=== PATIENT | female | born 2000 | race Caucasian/White ===

== ENCOUNTER 2023-10-18 09:39 | Emergency (ER) | payer SELFPAY ==
[~2023-10-18] VITALS: Ht 167.6 cm; Wt 77.0 kg
[2023-10-18 09:58] VITALS: BP 117/75; PULSE 87; RESP 16; O2SAT 100
[2023-10-18] MEDS: ACETAMINOPHEN 325MG TABLET PO STA (10:16)
[2023-10-18] MEDS: ONDANSETRON HCL 4MG/2ML INJ IM STA (10:16)
[2023-10-18 10:33] LABS: BASOPHILS % 0.4 % (0.0-2.0); EOSINOPHILS % 0.5 % (0.0-5.0); HEMATOCRIT. 38.8 % (36.0-48.0); LYMPHOCYTES % 19.7 % (20.0-50.0); MEAN CORPUSCULAR HEMOGLOBIN 29.9 pg (28.0-32.0); MEAN CORPUSCULAR HGB CONC 33.6 g/dL (31.0-37.0); MEAN CORPUSCULAR VOLUME 88.9 fL (81.0-99.0); MEAN PLATELET VOLUME 8.1 fl (7.4-10.4); MONOCYTES % 6.7 % (2.0-8.0); NEUTROPHILS % 72.7 % (40.0-76.0); PLATELET 219 x1000/uL (130-400); RED BLOOD CELL COUNT 4.36 mill/uL (4.2-5.4); RED CELL DISTRIBUTION WIDTH 13.6 % (11.6-14.6); WHITE BLOOD COUNT 5.7 x1000/uL (4.5-11.0)
[2023-10-18 10:47] LABS: CHLORIDE 106 mEq/L (98-107); POTASSIUM 3.9 mEq/L (3.5-5.1); SODIUM 140 mEq/L (136-145)
[2023-10-18 10:48] LABS: CALCIUM 9.4 mg/dL (8.7-10.4); CARBON DIOXIDE 26 mEq/L (21-32)
[2023-10-18 10:53] LABS: CREATININE 0.7 mg/dL (0.6-1.0); GLUCOSE 102 mg/dL (70-105); UREA NITROGEN BLOOD 13 mg/dL (9-23)
[2023-10-18 11:05] LABS: CLARITY URINE CLEAR (CLEAR); COLOR URINE YELLOW (YELLOW); GLUCOSE URINE NEGATIVE (NEGATIVE); KETONES URINE NEGATIVE (NEGATIVE); LEUKOCYTE ESTERASE URINE NEGATIVE (NEGATIVE); NITRITE URINE NEGATIVE (NEGATIVE); OCCULT BLOOD URINE NEGATIVE (NEGATIVE); PROTEIN URINE NEGATIVE (NEGATIVE); SPECIFIC GRAVITY URINE 1.025 (1.005-1.030); UROBILINOGEN URINE 0.2 E.U./dL (0.2-1.0)
[2023-10-18] MEDS ORDERED: ONDA4TAB50 PO (12:44)
[2023-10-18 12:45] VITALS: TEMP 98
[2023-10-18] MEDS: ACETAMINOPHEN 325MG TABLET PO SCH (12:45)
[2023-10-18] MEDS: ONDANSETRON HCL 4MG/2ML INJ IM SCH (12:45)
[2023-10-18] MEDS: SODIUM CHLORIDE 0.9% 1,000 ML IV ONE (13:13)
== END 2023-10-18 14:47 | disposition home or self-care (01) ==
LOC: ER 09:39
DX: K29.20 Alcoholic gastritis without bleeding (principal); M79.10 Myalgia, unspecified site; F10.10 Alcohol abuse, uncomplicated
CPT/HCPCS: 80048; 81003; 81025; 85025; 36415; 96360; 96372; 99283; J2405; J7030; Z7610 ×2

== ENCOUNTER 2024-07-29 01:51 | Emergency (ER) | payer MEDICAID ==
[~2024-07-29] VITALS: Ht 165.1 cm; Wt 75.0 kg
[~2024-07-29 01:51] MED LIST: ONDA4TAB50 PO
[2024-07-29 02:00] VITALS: O2SAT 100
[2024-07-29 02:08] VITALS: BP 121/71; PULSE 75; RESP 16; TEMP 36.7; O2SAT 99
[2024-07-29 02:39] LABS: BASOPHILS % 0.3 % (0.0-2.0); EOSINOPHILS % 0.5 % (0.0-5.0); HEMATOCRIT. 40.8 % (36.0-48.0); HEMOGLOBIN. 13.7 g/dL (12.0-16.0); LYMPHOCYTES % 19.4 % (20.0-50.0); MEAN CORPUSCULAR HEMOGLOBIN 28.9 pg (28.0-32.0); MEAN CORPUSCULAR HGB CONC 33.5 g/dL (31.0-37.0); MEAN CORPUSCULAR VOLUME 86.4 fL (81.0-99.0); MEAN PLATELET VOLUME 8.2 fl (7.4-10.4); MONOCYTES % 5.9 % (2.0-8.0); NEUTROPHILS % 73.9 % (40.0-76.0); PLATELET 241 x1000/uL (130-400); RED BLOOD CELL COUNT 4.72 mill/uL (4.2-5.4); RED CELL DISTRIBUTION WIDTH 13.8 % (11.6-14.6); WHITE BLOOD COUNT 8.8 x1000/uL (4.5-11.0)
[2024-07-29 02:46] LABS: CARBON DIOXIDE 27 mEq/L (21-32); CHLORIDE 100 mEq/L (98-107); POTASSIUM 3.4 mEq/L (3.5-5.1); SODIUM 137 mEq/L (136-145)
[2024-07-29 02:47] LABS: CALCIUM 9.3 mg/dL (8.7-10.4)
[2024-07-29 02:51] LABS: CREATININE 0.8 mg/dL (0.6-1.0); GLUCOSE 89 mg/dL (70-105)
[2024-07-29 02:52] LABS: UREA NITROGEN BLOOD 12 mg/dL (9-23)
[2024-07-29 02:53] LABS: ALANINE AMINOTRANSFERASE 10 IU/L (10-49); ASPARTATE AMINOTRANSFERASE 43 IU/L (<34)
[2024-07-29 02:54] LABS: BILIRUBIN TOTAL 0.5 mg/dL (0.1-1.0); PROTEIN TOTAL 8.7 g/dL (6.0-8.3)
[2024-07-29] MEDS: KETOROLAC 30MG/ML VIAL IM ONE (03:13)
[2024-07-29 03:43] LABS: CLARITY URINE CLOUDY (CLEAR); COLOR URINE YELLOW (YELLOW); GLUCOSE URINE NEGATIVE (NEGATIVE); KETONES URINE NEGATIVE (NEGATIVE); LEUKOCYTE ESTERASE URINE 2+ (NEGATIVE); NITRITE URINE NEGATIVE (NEGATIVE); OCCULT BLOOD URINE 2+ (NEGATIVE); PROTEIN URINE 2+ (NEGATIVE); SPECIFIC GRAVITY URINE 1.025 (1.005-1.030)
[2024-07-29 03:46] LABS: BACTERIA URINE 1+; SQUAMOUS EPITHELIAL CELL URINE 1+ /lpf (RARE/1+); WBC URINE 25-50 /hpf (0-2)
[2024-07-29] MEDS ORDERED: NITR-87 MT (04:23)
[2024-07-29] MEDS ORDERED: IBUP-2029 MT (04:23)
[2024-07-29] MEDS: NITROFURANTOIN 100MG M/M CAPSULE PO ONE (04:47)
== END 2024-07-29 04:55 | disposition home or self-care (01) ==
LOC: ER 01:51
DX: N39.0 Urinary tract infection, site not specified (principal)
CPT/HCPCS: 80053; 81003; 81025; 83690; 85025; 87086; 87186; 87077; 36415; 76705; 96372; 99285; J1885; Z7610

== ENCOUNTER 2024-12-29 02:01 | Emergency (ER) | payer MEDICAID ==
[~2024-12-29] VITALS: Ht 167.6 cm; Wt 82.2 kg
[~2024-12-29 02:01] MED LIST changes: +IBUP-1455 MT; +NITR-87 MT
[2024-12-29 02:14] VITALS: O2SAT 100
[2024-12-29] MEDS ORDERED: CLOT45CR62 VG (03:08)
[2024-12-29 04:20] LABS: CLARITY URINE CLEAR (CLEAR); COLOR URINE YELLOW (YELLOW); GLUCOSE URINE NEGATIVE (NEGATIVE); KETONES URINE NEGATIVE (NEGATIVE); LEUKOCYTE ESTERASE URINE 1+ (NEGATIVE); NITRITE URINE NEGATIVE (NEGATIVE); OCCULT BLOOD URINE NEGATIVE (NEGATIVE); PH URINE 7.5 (4.5-8.0); PROTEIN URINE NEGATIVE (NEGATIVE); SPECIFIC GRAVITY URINE 1.013 (1.005-1.030); UROBILINOGEN URINE 1.0 E.U./dL (0.2-1.0)
[2024-12-29 04:38] LABS: BACTERIA URINE TRACE; RBC URINE NONE SEEN /hpf (0-2); SQUAMOUS EPITHELIAL CELL URINE 3+ /lpf (RARE/1+); WBC URINE 0-2 /hpf (0-2)
[2024-12-29 04:49] VITALS: BP 125/56; PULSE 72; RESP 14; TEMP 37.1; O2SAT 100
== END 2024-12-29 04:59 | disposition home or self-care (01) ==
LOC: ER 02:01
DX: O23.599 Infection of other part of genital tract in pregnancy, unspecified trimester (principal); Z3A.00 Weeks of gestation of pregnancy not specified
CPT/HCPCS: 81003; 81025; 99283

== ENCOUNTER 2025-03-05 19:52 | Emergency (ER) | payer MEDICAID ==
[~2025-03-05] VITALS: Ht 167.6 cm; Wt 85.0 kg
[~2025-03-05 19:52] MED LIST changes: +CLOT45CR62 VG
[2025-03-05 20:23] VITALS: O2SAT 98
[2025-03-05] MEDS: SODIUM CHLORIDE 0.9% 1,000 ML IV ONE (23:06)
[2025-03-05 23:08] LABS: BASOPHILS % 0.3 % (0.0-2.0); EOSINOPHILS % 0.8 % (0.0-5.0); HEMATOCRIT. 36.6 % (36.0-48.0); HEMOGLOBIN. 12.0 g/dL (12.0-16.0); LYMPHOCYTES % 20.5 % (20.0-50.0); MEAN PLATELET VOLUME 8.3 fl (7.4-10.4); MONOCYTES % 4.9 % (2.0-8.0); NEUTROPHILS % 73.5 % (40.0-76.0); PLATELET 241 x1000/uL (130-400); RED BLOOD CELL COUNT 4.32 mill/uL (4.2-5.4); RED CELL DISTRIBUTION WIDTH 14.0 % (11.6-14.6)
[2025-03-05] MEDS: ACETAMINOPHEN 1000MG/100ML 100 ML IV ONE (23:14)
[2025-03-05 23:17] LABS: UREA NITROGEN BLOOD 6 mg/dL (9-23)
[2025-03-05 23:30] LABS: CREATININE 0.5 mg/dL (0.6-1.0)
[2025-03-05 23:40] LABS: CLARITY URINE CLOUDY (CLEAR); COLOR URINE YELLOW (YELLOW); GLUCOSE URINE NEGATIVE (NEGATIVE); KETONES URINE NEGATIVE (NEGATIVE); LEUKOCYTE ESTERASE URINE 1+ (NEGATIVE); NITRITE URINE NEGATIVE (NEGATIVE); OCCULT BLOOD URINE NEGATIVE (NEGATIVE); PH URINE 7.0 (4.5-8.0); PROTEIN URINE NEGATIVE (NEGATIVE); SPECIFIC GRAVITY URINE 1.022 (1.005-1.030); UROBILINOGEN URINE 1.0 E.U./dL (0.2-1.0)
[2025-03-06] MEDS ORDERED: ACET-2708 MT (00:53)
[2025-03-06 01:14] LABS: SQUAMOUS EPITHELIAL CELL URINE 1+ /lpf (RARE/1+)
[2025-03-06 01:15] LABS: RBC URINE 0-2 /hpf (0-2)
[2025-03-06 01:16] LABS: BACTERIA URINE 1+
[2025-03-06 01:31] VITALS: BP 111/55; PULSE 80; RESP 14; TEMP 36.7; O2SAT 99
== END 2025-03-06 01:33 | disposition home or self-care (01) ==
LOC: ER 19:52
DX: O23.12 Infections of bladder in pregnancy, second trimester (principal); N30.00 Acute cystitis without hematuria; O26.892 Other specified pregnancy related conditions, second trimester; R51.9 Headache, unspecified; N89.8 Other specified noninflammatory disorders of vagina; Z79.899 Other long term (current) drug therapy; Z3A.14 14 weeks gestation of pregnancy
CPT/HCPCS: 99283; 96374; 80048; 81003; 84702; 85025; 36415; J7030; J0131